=== PATIENT | female | born 1980 | race American Indian/Alaskan Native ===

== ENCOUNTER 2017-08-05 08:12 | Emergency (ER) | payer SELFPAY ==
[2017-08-05] MEDS ORDERED: MOTRIN PO ONE (11:25)
[2017-08-05] MEDS ORDERED: TYLENOL/CODEINE PO ONE (11:26)
[2017-08-05] MEDS ORDERED: ZOFRAN ODT PO ONE (11:27)
--- NOTE | 2017-08-05 11:27 | Emergency Department Report ---
HPI - General Chief Complaint: Upper Respiratory Infection Time Seen by Provider: 08/05/17 11:24 ED Past Medical Hx - Past Medical History Previous Medical History?: No - Surgical History Past Surgical History?: No - Social History Smoking Status: Never Smoker Substance Use Type: None - Medications Home Medications: Home Medications Medication Instructions Recorded Confirmed Last Taken Type Cetirizine HCl [ZyrTEC] 10 mg PO QAM 14 Days #14 capsule 08/05/17 Unknown Rx Ibuprofen [Motrin] 600 mg PO Q6H PRN #12 tablet 08/05/17 Unknown Rx Oseltamivir [Tamiflu] 75 mg PO BID 5 Days #10 cap 08/05/17 Unknown Rx Promethazine [Phenergan TAB] 25 mg PO Q8HR PRN #15 tab 08/05/17 Unknown Rx guaiFENesin/CODEINE [Robitussin AC] 5 ml PO Q8H PRN #75 ml 08/05/17 Unknown Rx ED Review of Systems ROS: Stated complaint: HEADACHE Other details as noted in HPI Physical Exam - Physical Exam Vital Signs: Vital Signs 08/05/17 08:39 Temperature 99.6 F Pulse Rate 110 H Respiratory 18 Rate Blood Pressure 137/77 O2 Sat by Pulse 99 Oximetry Vital Signs 08/05/17 08/05/17 08/05/17 08:39 12:01 12:02 Temperature 99.6 F Pulse Rate 110 H 98 H Respiratory 18 18 18 Rate Blood Pressure 137/77 117/78 O2 Sat by Pulse 99 100 Oximetry 08/05/17 12:05 Temperature 100.8 F H Pulse Rate Respiratory Rate Blood Pressure O2 Sat by Pulse Oximetry General: This is a 37-year-old female looks ill but nontoxic in appearance. Physical Exam: Head: Normocephalic atraumatic Ears:BIateral TM congested without erythema and loss of bony landmarks. Manolo EAC with normal exam. No mastoid bone tenderness. Mouth: Moist, no pharyngeal erythema or exudate . No tonsillar erythema or exudate. UVULA midline and oral airways patent. No peritonsillar abscess Neck: Nontender to palpate, supple, normal range of motion. No adenopathy. No c- spine tenderness. Nose: Bilateral nasal mucosa congested with clear drainage. Maxillary and frontal sinuses non-tender to palpate. Eyes: Sclerae and conjunctiva without injection. Bilateral pupils equal and reactive to light. Bilateral lids are normal. Normal accommodation.BEOMI Lungs: Clear to auscultate bilaterally, no rhonchi wheezes or rales. Normal work of breathing and no chest wall tenderness. Dry cough Abdomen: Soft, nontender to palpation in all quadrants, no guarding or rebound tenderness and positive bowel sounds CV: S1, S2. Sinus tachycardia 110, Regular rhythm ,negative murmur. Capillary refill is less than 3 seconds Skin: Clean dry and intact, no rashes or lesions Psych: Normal mood and behavior ED Course Vital Signs 08/05/17 08:39 Temperature 99.6 F Pulse Rate 110 H Respiratory 18 Rate Blood Pressure 137/77 O2 Sat by Pulse 99 Oximetry Vital Signs 08/05/17 08/05/17 08/05/17 08:39 12:01 12:02 Temperature 99.6 F Pulse Rate 110 H 98 H Respiratory 18 18 18 Rate Blood Pressure 137/77 117/78 O2 Sat by Pulse 99 100 Oximetry 08/05/17 12:05 Temperature 100.8 F H Pulse Rate Respiratory Rate Blood Pressure O2 Sat by Pulse Oximetry - Reevaluation(s) Reevaluation #1: 08/05/17 13:18 Patient received 1 L of normal saline and she is able to tolerate oral liquids in emergency room. Strep, influenza negative for any abnormality. Patient given Tylenol codeine 10 mL for cough and Zofran 8 mg ODT. Given ibuprofen 800 mg for headache and body ache and says she feels better. Vital signs are stable and her heart rate is below 100. ED Medical Decision Making - Lab Data Strep negative and influenza A and B- - Medical Decision Making ED course: Patient here with flulike symptoms. She has low-grade fever. Patient says that this has been ongoing for the last 2-3 days. Patient given IV fluid normal saline 1 L emergency room and she is also able to tolerate oral fluids. She was also given Zofran 8 mg ODT and Tylenol codeine 10 mL by mouth. Patient was given Motrin 800 mg by mouth for bodyaches and headache. She is feeling much better. Strep and influenza negative. Patient with acute viral syndrome with cough and fever. I discussed diagnosis and treatment plan with her. I discussed with her that she'll need to follow up with her primary care in 2-3 days or return to the emergency room if she is not feeling better she voiced understanding. Patient discharged home in stable condition with her family member with prescription for Zofran, Tamiflu, Motrin and guaifenesin with codeine. Critical care attestation.: If time is entered above; I have spent that time in minutes in the direct care of this critically ill patient, excluding procedure time. ED Disposition Clinical Impression: Cough in adult patient, Fever and chills, Acute viral syndrome Disposition: TO HOME OR SELFCARE Is pt being admited?: No Does the pt Need Aspirin: No Condition: Stable Instructions: Viral Syndrome (ED), Acute Cough (ED), Fever in Adults (ED) Additional Instructions: Please increase her fluid intake to 2 to 3 liters of water, orange juice and/or Gatorade per day. Follow-up with primary care physician in 2-3 days and if you do not have a primary care physician follow-up with [facility] for 2 days. Take medication as prescribed Prescriptions: Cetirizine HCl [ZyrTEC] 10 mg PO QAM 14 Days #14 capsule guaiFENesin/CODEINE [Robitussin AC] 5 ml PO Q8H PRN #75 ml PRN Reason: Cough Ibuprofen [Motrin] 600 mg PO Q6H PRN #12 tablet PRN Reason: FEVER AND PAIN Oseltamivir [Tamiflu] 75 mg PO BID 5 Days #10 cap Promethazine [Phenergan TAB] 25 mg PO Q8HR PRN #15 tab PRN Reason: Nausea Referrals: PRIMARY CARE, [Primary Care Provider] - 2-3 Days [facility] [Outside] - 2-3 Days Forms: Work/School Release Form(ED)
[2017-08-05 12:05] VITALS: BP 117/78
[2017-08-05] MEDS ORDERED: NACL 0.9% 1000 ML 1,000 ML IV ONE (12:26)
== END 2017-08-05 14:15 | disposition home or self-care (01) ==
LOC: ED 08:12
DX: B34.9 Viral infection, unspecified (principal); Z88.1 Allergy status to other antibiotic agents; Z88.5 Allergy status to narcotic agent
CPT/HCPCS: 87116; 87400; 87430; 96360; 99283; J7030; Q0162

== ENCOUNTER 2017-09-28 20:31 | Emergency (ER) | payer SELFPAY ==
[2017-09-28 21:26] LABS: Basophils % (Auto) 0.5 % (0.0-1.8); Eosinophils # (Auto) 0.1 K/mm3 (0.0-0.4); Eosinophils % (Auto) 1.1 % (0.0-4.3); Hematocrit 35.8 % (30.3-42.9); Hemoglobin 11.8 gm/dl (10.1-14.3); Lymphocytes # (Auto) 1.4 K/mm3 (1.2-5.4); Lymphocytes % (Auto) 16.4 % (13.4-35.0); Mean Corpuscular HGB Conc 33 % (30-34); Mean Corpuscular Hemoglobin 28 pg (28-32); Mean Corpuscular Volume 84 fl (79-97); Monocytes # (Auto) 0.5 K/mm3 (0.0-0.8); Monocytes % (Auto) 5.9 % (0.0-7.3); Platelet Count 283 K/mm3 (140-440); Red Blood Count 4.26 M/mm3 (3.65-5.03); Red Cell Distribution Width 17.1 % (13.2-15.2)
--- NOTE | 2017-09-28 23:52 | Emergency Department Report ---
ED General Adult HPI - General Chief complaint: Vaginal Bleeding Stated complaint: VAGINAL BLEEDING,ABDOMINAL PAIN Time Seen by Provider: 09/28/17 23:43 Source: patient Mode of arrival: Ambulatory Limitations: No Limitations - History of Present Illness Initial comments: 37-year-old female history of fibroids has been having intermittent vaginal bleeding however it's extending beyond her usual cycles she denies soaking pads she is not dizzy she denies syncope she presents with stable vital signs with menometrorrhagia. -: days(s), unknown Radiation: non-radiation Severity scale (0 -10): 0 Consistency: now resolved Improves with: none Worsens with: none Associated Symptoms: denies other symptoms. denies: confusion, chest pain, cough, diaphoresis, headaches, loss of appetite, malaise, nausea/vomiting, shortness of breath, syncope, weakness - Related Data Previous Rx's Medication Instructions Recorded Last Taken Type Cetirizine HCl [ZyrTEC] 10 mg PO QAM 14 Days #14 capsule 08/05/17 Unknown Rx Ibuprofen [Motrin] 600 mg PO Q6H PRN #12 tablet 08/05/17 Unknown Rx Oseltamivir [Tamiflu] 75 mg PO BID 5 Days #10 cap 08/05/17 Unknown Rx Promethazine [Phenergan TAB] 25 mg PO Q8HR PRN #15 tab 08/05/17 Unknown Rx guaiFENesin/CODEINE [Robitussin AC] 5 ml PO Q8H PRN #75 ml 08/05/17 Unknown Rx Allergies Allergy/AdvReac Type Severity Reaction Status Date / Time doxycycline Allergy Vomiting Verified 08/05/17 08:39 hydrocodone Allergy Vomiting Verified 08/05/17 08:39 ED Review of Systems ROS: Stated complaint: VAGINAL BLEEDING,ABDOMINAL PAIN Other details as noted in HPI Comment: All other systems reviewed and negative Constitutional: no symptoms reported. denies: diaphoresis, fever, malaise, weakness Respiratory: denies: shortness of breath, SOB with exertion, SOB at rest, stridor Cardiovascular: denies: chest pain, palpitations, dyspnea on exertion, orthopnea , edema, syncope Gastrointestinal: denies: nausea, vomiting, diarrhea, constipation, hematemesis , melena, hematochezia Genitourinary: abnormal menses. denies: urgency, dysuria, hematuria, discharge , dyspareunia Musculoskeletal: denies: joint swelling, arthralgia Neurological: denies: numbness, paresthesias, confusion Psychiatric: denies: auditory hallucinations, visual hallucinations, homicidal thoughts, suicidal thoughts Hematological/Lymphatic: denies: easy bleeding, easy bruising ED Past Medical Hx - Past Medical History Additional medical history: Sickle Cell Trait, Hypothyroidism - Surgical History Additional Surgical History: Tubal Ligation. Gastric Sleeve, X 1 - Social History Smoking Status: Never Smoker Substance Use Type: None - Medications Home Medications: Home Medications Medication Instructions Recorded Confirmed Last Taken Type Cetirizine HCl [ZyrTEC] 10 mg PO QAM 14 Days #14 capsule 08/05/17 Unknown Rx Ibuprofen [Motrin] 600 mg PO Q6H PRN #12 tablet 08/05/17 Unknown Rx Oseltamivir [Tamiflu] 75 mg PO BID 5 Days #10 cap 08/05/17 Unknown Rx Promethazine [Phenergan TAB] 25 mg PO Q8HR PRN #15 tab 08/05/17 Unknown Rx guaiFENesin/CODEINE [Robitussin AC] 5 ml PO Q8H PRN #75 ml 08/05/17 Unknown Rx ED Physical Exam - General Limitations: No Limitations General appearance: alert, in no apparent distress - Head Head exam: Present: atraumatic, normocephalic - Eye Eye exam: Present: normal appearance, PERRL, EOMI - ENT ENT exam: Present: normal exam, normal orophraynx - Neck Neck exam: Present: normal inspection. Absent: tenderness, meningismus - Respiratory Respiratory exam: Present: normal lung sounds bilaterally. Absent: respiratory distress, wheezes, rales, rhonchi, stridor, chest wall tenderness, accessory muscle use, decreased breath sounds, prolonged expiratory - Cardiovascular Cardiovascular Exam: Present: regular rate, normal rhythm. Absent: bradycardia , tachycardia, irregular rhythm, normal heart sounds, systolic murmur, diastolic murmur, rubs, gallop - GI/Abdominal GI/Abdominal exam: Present: soft. Absent: distended, tenderness, guarding, rebound, rigid, pulsatile mass - External exam: Present: normal external exam Speculum exam: Present: other (not soaking pads) - Extremities Exam Extremities exam: Present: normal inspection, full ROM. Absent: tenderness, normal capillary refill, pedal edema, joint swelling, calf tenderness - Back Exam Back exam: Present: normal inspection. Absent: CVA tenderness (L), muscle spasm , paraspinal tenderness, vertebral tenderness - Neurological Exam Neurological exam: Present: alert, oriented X3, CN II-XII intact. Absent: motor sensory deficit ED Course Vital Signs 09/28/17 20:53 Temperature 98.7 F Pulse Rate 84 Respiratory 18 Rate Blood Pressure 120/78 O2 Sat by Pulse 100 Oximetry ED Medical Decision Making - Lab Data Result diagrams: 09/28/17 21:06 - Medical Decision Making Patient is not she is not orthostatic vital signs are stable H&H is stable she will be referred to [facility] for further evaluation she is stable for outpatient follow-up. She is declining control pill for the possibility of anovulatory cycle with hormonal related. Given the fact that there is no evidence of hemorrhage or severe bleeding at this time with a stable H&H despite question of one month of menometrorrhagia. She is stable for outpatient follow-up with [facility] for further evaluation including cytology she was informed of the need and the differential including cancer and will arrange follow-up and did verbalize understanding. She is return immediately if worse she did verbalize understanding occluding a parameter of heavy soaking pads for greater than 6 hours dizzy spells and lightheadedness low blood pressure or other problems Critical care attestation.: If time is entered above; I have spent that time in minutes in the direct care of this critically ill patient, excluding procedure time. ED Disposition Clinical Impression: Dysfunctional uterine bleeding Disposition: - TO HOME OR SELFCARE Is pt being admited?: No Condition: Stable Instructions: Dysfunctional Uterine Bleeding (ED), Menorrhagia (ED) Additional Instructions: See her doctor or the doctor listed return immediately if new or alarming symptoms or call 911 Referrals: TYLER ALBERT MD [Staff Physician] - 3-5 Days Time of Disposition: 00:18
[2017-09-29 00:15] LABS: Bilirubin,Urine NEG (Negative); Blood,Urine LG (Negative); Color,Urine Yellow (Yellow); Mucus,Urine FEW /HPF
[2017-09-29 00:17] LABS: RBC,Urine > 182.0 /HPF (0.0-6.0)
[2017-09-29 00:38] VITALS: BP 111/70
== END 2017-09-29 00:45 | disposition home or self-care (01) ==
LOC: ED 20:31
DX: N93.8 Other specified abnormal uterine and vaginal bleeding (principal); Z88.1 Allergy status to other antibiotic agents; Z98.51 Tubal ligation status; E03.9 Hypothyroidism, unspecified
CPT/HCPCS: 36415; 81001; 84703; 85025; 86850; 86900; 86901